=== PATIENT | female | born 1995 | race Caucasian/White ===

== ENCOUNTER 2016-10-22 00:17 | Emergency (ER) | payer MEDICAID ==
[~2016-10-22] VITALS: Ht 165.1 cm; Wt 94.0 kg
[~2016-10-22 00:17] MED LIST: AMOX500T PO; PRED20 PO
[2016-10-22 00:20] VITALS: BP 132/85; PULSE 89; RESP 16; TEMP 98; O2SAT 100
[2016-10-22] MEDS ORDERED: SODIUM CHLOR 0.9% 1000 ML INJ 1,000 ML IV ONE (03:15)
[2016-10-22] MEDS ORDERED: ONDANSETRON HCL 4 MG/2 ML VIAL IV ONE (03:15)
[2016-10-22 04:06] LABS: AUTOMATED NEUTROPHIL # 3.9 TH/MM3 (1.8-7.7); BASOPHIL % 0.5 % (0.0-2.0); EOSINOPHIL # 0.6 TH/MM3 (0-0.4); EOSINOPHIL % 7.6 % (0.0-4.0); HEMATOCRIT 38.6 % (35.0-46.0); HEMO FLAGS DIFF FINAL; LYMPH % 34.7 % (9.0-44.0); LYMPHOCYTE # 2.8 TH/MM3 (1.0-4.8); MEAN CORPUSCULAR HEMOGLOBIN 31.2 PG (27.0-34.0); MEAN CORPUSCULAR HGB CONC 33.9 % (32.0-36.0); MONO % 8.3 % (0.0-8.0); NEUT % 48.9 % (16.0-70.0); PLATELET COUNT 262 TH/MM3 (150-450); RED CELL DISTRIBUTION WIDTH 13.3 % (11.6-17.2)
[2016-10-22 04:21] LABS: ALT (GPT) 22 U/L (9-42); ANION GAP 10 MEQ/L (5-15); BICARBONATE 23.5 MEQ/L (21.0-32.0); BLOOD UREA NITROGEN 16 MG/DL (7-18); CHLORIDE 107 MEQ/L (98-107); GLOMERULAR FILTRATION RATE 97 ML/MIN (>89); POTASSIUM 3.7 MEQ/L (3.5-5.1); SODIUM (NA) 140 MEQ/L (136-145)
[2016-10-22 04:23] LABS: ALKALINE PHOSPHATASE 80 U/L (45-117); AST (GOT) 13 U/L (16-38); TOTAL BILIRUBIN ADULT 0.1 MG/DL (0.2-1.0)
[2016-10-22 04:26] LABS: BLOOD, URINE NEG (NEG); COMMENT (UR) CULT NOT INDICATED; CULTURE IF INDICATED CULT NOT INDICATED; GLUCOSE,URINE NEG (NEG); KETONE, URINE NEG (NEG); MUCUS URINE FEW /lpf (OCC); NITRITE,URINE NEG (NEG); PH, URINE 6.5 (5.0-8.5); SQUAMOUS EPITHELIAL CELL URINE 3 /hpf (0-5); URINE COLOR YELLOW (YELLW/STRAW)
[2016-10-22] MEDS ORDERED: MACR100C2 PO (05:17)
[2016-10-22] MEDS ORDERED: NAPR1TAB34 PO (05:17)
--- NOTE | 2016-10-22 05:17 | PD ---
HPI Chief Complaint: Abdominal Pain Time Seen by Provider: 03:02 Travel History International Travel<30 days: No Contact w/Intl Traveler<30days: No Traveled to known affect area: No History of Present Illness HPI The patient is a 21 year old female who presents to the [facility] emergency department with a history of lower abdominal pain that began 2 weeks ago. The patient reports that the pain is coming and going. She reports the pain is across her abdomen below the belly button. The patient reports that it is a dull aching sensation that gets worse with eating. She reports having nausea but no vomiting or diarrhea. Her last bowel movement was earlier today. She reports that her last menstrual cycle was at the end of August. She reports that she has not had regular menstrual cycles since she had a miscarriage in June 2016. She reports that approximately a week ago she went to [facility] was diagnosed with ovarian cysts. She reports that she was given a prescription for nausea. She denies being given a prescription for pain. She is a with 2 prior miscarriages. She does not have a local gusset folder. The patient denies recent fevers, cough, congestion, neck pain, chest pain, shortness of breath, urinary symptoms, vaginal discharge , vaginal bleeding, or neurologic symptoms. PFSH Past Medical History Narrative Medical The patient's past medical history is reportedly none. Immunizations Current: Yes ?: Unknown LMP: END OF AUG Past Surgical History Narrative Surgical The patient's past surgical history is reportedly none. Social History Alcohol Use: No Tobacco Use: Yes (a half a pack a day) Substance Use: No Allergies-Medications (Allergen,Severity, Reaction): Coded Allergies: Blue Dyes - Various (Verified Allergy, Mild, HIVES AND SOB, 10/22/16) Reported Meds & Prescriptions Reported Meds & Active Scripts Active Naproxen EC (Naproxen) 500 Mg Tabdr 500 Mg PO BID PRN Macrobid (Nitrofurantoin Monoh/Nitrofur Macro) 100 Mg Cap 100 Mg PO BID 7 Days Deltasone (Prednisone) 20 Mg Tab 20 Mg PO BID Amoxicillin 500 Mg Cap 500 Mg PO TID Review of Systems Except as stated in HPI: all other systems reviewed are Neg General / Constitutional: No: Fever Eyes: No: Visual changes HENT: No: Headaches Cardiovascular: No: Chest Pain or Discomfort Respiratory: No: Shortness of Breath Gastrointestinal: Positive: Nausea, Abdominal Pain, No: Vomiting, Diarrhea, Hematemesis, Hematochezia, Changes in Bowel Habits, Loss of Appetite Genitourinary: No: Urgency, Frequency, Dysuria, Dysmenorrhea, Vaginal Bleeding Musculoskeletal: No: Pain Skin: No Rash Neurologic: No: Weakness Psychiatric: No: Depression Endocrine: No: Polydipsia Hematologic/Lymphatic: No: Easy Bruising Physical Exam Narrative General: The patient is a well-developed well-nourished female in no acute distress. The patient is sleeping soundly on my arrival to the room. Head and Neck exam: Head is normocephalic atraumatic. Eyes: EOMI, pupils are equal round and reactive to light. Nose: Midline septum with pink mucous membranes Mouth: Dentition unremarkable. Moist mucus membranes. Posterior oropharynx is not erythematous. No tonsillar hypertrophy. Uvula midline. Airway patent. Neck: No palpable lymphadenopathy. No nuchal rigidity. No thyromegaly. Cardiovascular: Regular rate and rhythm without murmurs, gallops, or rubs. Lungs: Clear to auscultation bilaterally. No wheezes, rhonchi, or rales. Abdomen: Soft, without tenderness to palpation in all 4 quadrants of the abdomen. No guarding, rebound, or rigidity. Normal bowel sounds are audible. No tenderness on palpation of McBurney's point. Negative Marques's sign. Extremities: No clubbing, cyanosis, or edema. No calf tenderness on palpation. Back: No spinous process tenderness to palpation. No costovertebral angle tenderness to palpation. Neurologic Exam: Grossly nonfocal. Skin Exam: No rash noted. Intact skin that is warm and dry. Data Data Last Documented VS Vital Signs Date Time Temp Pulse Resp B/P Pulse Ox O2 Delivery O2 Flow Rate FiO2 10/22/16 03:24 Room Air 10/22/16 00:20 98.0 89 16 132/85 100 Orders Complete Blood Count With Diff (10/22/16 03:02) Comprehensive Metabolic Panel (10/22/16 03:02) C-Reactive Protein (Crp) (10/22/16 03:02) Lipase (10/22/16 03:02) Urinalysis - C+S If Indicated (10/22/16 03:02) Iv Access Insert/Monitor (10/22/16 03:02) Ecg Monitoring (10/22/16 03:02) Oximetry (10/22/16 03:02) Ed Urine Pregnancytest Poc (10/22/16 03:02) Sodium Chlor 0.9% 1000 Ml Inj (Ns 1000 M (10/22/16 03:15) Ondansetron Inj (Zofran Inj) (10/22/16 03:15) Labs Laboratory Tests Test 10/22/16 03:30 White Blood Count 8.0 TH/MM3 Red Blood Count 4.20 MIL/MM3 Hemoglobin 13.1 GM/DL Hematocrit 38.6 % Mean Corpuscular Volume 92.0 FL Mean Corpuscular Hemoglobin 31.2 PG Mean Corpuscular Hemoglobin 33.9 % Concent Red Cell Distribution Width 13.3 % Platelet Count 262 TH/MM3 Mean Platelet Volume 8.1 FL Neutrophils (%) (Auto) 48.9 % Lymphocytes (%) (Auto) 34.7 % Monocytes (%) (Auto) 8.3 % Eosinophils (%) (Auto) 7.6 % Basophils (%) (Auto) 0.5 % Neutrophils # (Auto) 3.9 TH/MM3 Lymphocytes # (Auto) 2.8 TH/MM3 Monocytes # (Auto) 0.7 TH/MM3 Eosinophils # (Auto) 0.6 TH/MM3 Basophils # (Auto) 0.0 TH/MM3 CBC Comment DIFF FINAL Differential Comment Urine Color YELLOW Urine Turbidity CLEAR Urine pH 6.5 Urine Specific [place] 1.021 Urine Protein NEG mg/dL Urine Glucose (UA) NEG mg/dL Urine Ketones NEG mg/dL Urine Occult Blood NEG Urine Nitrite NEG Urine Bilirubin NEG Urine Urobilinogen LESS THAN 2.0 MG/DL Urine Leukocyte Esterase TRACE Urine RBC 1 /hpf Urine WBC 6 /hpf Urine Squamous Epithelial 3 /hpf Cells Urine Mucus FEW /lpf Microscopic Urinalysis Comment CULT NOT INDICATED Sodium Level 140 MEQ/L Potassium Level 3.7 MEQ/L Chloride Level 107 MEQ/L Carbon Dioxide Level 23.5 MEQ/L Anion Gap 10 MEQ/L Blood Urea Nitrogen 16 MG/DL Creatinine 0.76 MG/DL Estimat Glomerular Filtration 97 ML/MIN Rate Random Glucose 86 MG/DL Calcium Level 8.7 MG/DL Total Bilirubin 0.1 MG/DL Aspartate Amino Transf 13 U/L (AST/SGOT) Alanine Aminotransferase 22 U/L (ALT/SGPT) Alkaline Phosphatase 80 U/L C-Reactive Protein LESS THAN 0.29 MG/DL Total Protein 7.1 GM/DL Albumin 3.4 GM/DL Lipase 160 U/L MDM Medical Decision Making Medical Screen Exam Complete: Yes Emergency Medical Condition: Yes Medical Record Reviewed: Yes Differential Diagnosis Ovarian cyst, versus , versus ectopic , urinary tract infection Narrative Course During the course of the patients emergency department visit, the patients history, examination, and differential diagnosis were reviewed with the patient. The patient had IV access obtained and blood work sent for analysis. The patient was placed on a resolute professional with oximetry and blood pressure monitoring. The patient was provided normal saline IV fluids, Zofran for nausea. The Patients laboratory studies were reviewed and remarkable for a white count of 8, hemoglobin 13.1, platelets 262 with 8.3 monocytes, eosinophils 7.6. CMP is unremarkable, C-reactive protein is less than 0.29, lipase 160. Urinalysis shows trace leukocyte esterase, 6 WBCs. [id number] test is negative. The patient will be discharged home with a prescription for Macrobid and Naprosyn. The patient was instructed regarding the importance of following up with a gusset folder. She was given the name of the gusset folder on-call for follow-up, Dr. Lieberman. The patient is resting comfortably and feels better, is alert and in no distress. The patients results and examination findings were discussed with the patient. The repeat examination is unremarkable and benign. The history, exam, diagnostic testing, and current condition do not suggest any significant pathology to warrant further testing, continued ED treatment, admission, or surgical evaluation at this point. The vital signs have been stable. The patient does not have uncontrollable pain, intractable vomiting, or other significant symptoms. The patient's condition is stable and appropriate for discharge. The patient will pursue further outpatient evaluation with a primary care physician or other designated or consulting physician as indicated in the discharge instructions. The patient expressed understanding and was agreeable with this plan. Diagnosis Primary Impression: Irregular menstrual cycle Additional Impression: Pyuria Referrals: Allyson Lieberman MD 3 days Med/Other Pt SpecificInfo: Prescription(s) given Scripts Naproxen DR (Naproxen EC)500 Mg [id number] Mg PO BID PRN (PAIN GREATER THAN 5) # 10 TAB Ref 0 Prov:Farzaneh Lee MD 10/22/16 Nitrofurantoin Monohydrate Macrocrystals (Macrobid)100 Mg [id number] Mg PO BID 7 Days Ref 0 Prov:Farzaneh Lee MD 10/22/16 Disposition: 01 DISCHARGE HOME Condition: Stable Farzaneh Lee MD Oct 22, 2016 05:17
== END 2016-10-22 06:53 | disposition home or self-care (01) ==
LOC: NEPC 00:17
DX: N92.6 Irregular menstruation, unspecified (principal); N39.0 Urinary tract infection, site not specified
CPT/HCPCS: 80053; 81001; 83690; 84703; 85025; 86140; 96360; 99284; J7030